=== PATIENT | female | born 1945 | race Caucasian/White ===

== ENCOUNTER 2016-11-25 12:30 | Emergency (ER) | payer MEDICARE ==
[~2016-11-25] VITALS: Ht 162.6 cm; Wt 77.3 kg
[2016-11-25 12:40] VITALS: BP 149/89; PULSE 85; RESP 10; O2SAT 99
== END 2016-11-25 13:19 | disposition left against medical advice (07) ==
LOC: SED 12:30
DX: Z53.20 Procedure and treatment not carried out because of patient's decision for unspecified reasons (principal)

== ENCOUNTER 2016-12-21 04:43 | Emergency (ER) | payer MEDICARE ==
[~2016-12-21] VITALS: Ht 165.1 cm; Wt 78.2 kg
[2016-12-21 04:52] VITALS: BP 161/107; PULSE 84; RESP 16; O2SAT 98
--- NOTE | 2016-12-21 06:01 | ED.REPORT ---
HPI-Headache Date of Service Dec 21, 2016 ED Provider: Houston Conley DO A 71 year old female with a history of cluster headaches, HTN and hypercholesterolemia presents to the ED complaining of severe, sharp feeling headache rated 10/10. Condition has improved with O2 given for a half hour, she wants to be released. She reports that O2 relieves feeling of sharpness. Baseline headaches can last for 2 weeks, and she can have intervals of relief lasting 35 days, with baseline pain described as "ice pick picking at her left eye." . She has been put on endomycin to treat headaches in the past but wants to try O2 treatment because she is afraid liver damage from the drug. She currently takes medication for HTN and hypercholesterolemia. She reports a history of cholecystectomy. She drinks wine on occasion but does not smoke. Nursing Notes Stated Complaint: HEADACHE Chief Complaint: Headache Nursing Notes Reviewed: Yes Allergies: Coded Allergies: lisinopril (Verified Allergy, Unknown, cough, 11/25/16) promethazine (Verified Allergy, Unknown, anaphylaxis, 11/25/16) Uncoded Allergies: EMITREX INJECTABLE (Allergy, Unknown, 12/21/16) General Time Seen by MD: 06:01 Chief Complaint Headache Hx Obtained From: Patient Arrived By: Walk-in Sudden in Onset?: Yes Onset Occurred: 1 - 4 hours ago Symptom Duration: Since onset Recent Healthcare: Recent doctor visit (ED visit on Nov 25, 2016) Similar Sx Previous: Yes Past Medical History Past Medical History cluster headasches hypercholesterolemia Reports: Hypertension Past Surgical History Reports: Cholecystectomy Smoking History Never Smoker Social History Alcohol Use: "Social" Ambulatory Status Independent Review of Systems Constitutional: Denies: Fever Skin: Denies Bruising Neurologic: Reports: Headache Complete sys rev & neg: except as marked. Physical Exam Physical Exam Notes: Normal evaluation without stethoscope. Initial Vital Signs Vital Signs (First) Date Time Temp Pulse Resp B/P Pulse Ox O2 Delivery O2 Flow Rate FiO2 12/21/16 04:52 36.3 84 16 161/107 98 Room Air Initial VS: Reviewed General/Constitutional: Awake, Alert Pleasant, not appearing to be in distress. Head / Eyes: Atraumatic, Normocephalic, PERRL, EOMI Neck: Atraumatic, Full range of motion Neurologic: Oriented X3, Speech NL, No motor deficits, No sensory deficits, CN II - XII intact Respiratory / Chest: Atraumatic, No respiratory distress Abdomen: Atraumatic, No guarding, No rebound Skin: Warm, Dry Back: Atraumatic, Full range of motion Upper Extremity / MS: Atraumatic, Full range of motion Wrist / Hand: Atraumatic, Full range of motion Lower Extremity / Pelvis / MS: Atraumatic, Full range of motion Re-Eval/Medical Decision Med Decision/Clinical Course History of cluster headaches, simply requesting oxygen therapy, she received oxygen for approximately 30 minutes without complete relief of her headache but with some improvement. She declines any other intervention or medication. Return and follow-up precautions given. Source of Hx: Old records Re-Evaluation/Progress : Time of Eval: 06:01 Re-Evaluation/Progress Note: Rechecked patient, explained test results, diagnosis, and plan for discharge. Patient understands and agrees weith the plan. All questions addressed. Counseled Regarding: Diagnosis, Need for follow-up, When/why to return to ED Discharge & Departure Impression: Primary Impression: Cluster headache Disposition: Home Discharge Condition All VS Reviewed: Yes Condition: Improved Additional Instructions: Today you were seen in the ER and received high flow oxygen via a non- rebreather at greater than 15 L/m. Your blood pressure was mildly elevated at 161/107. Follow-up with your primary care doctor as needed for worsening symptoms or return to the ER. Referrals: Cristian Lin MD (PCP) Scribe Attestation Portions of this note were transcribed by Kendall Hoyos. I, Dr. Conley personally performed the history, physical exam and medical decision-making; I reviewed and confirmed the accuracy of the information in the transcribed note. Signed by: Geovanny Hough, 12/21/2016 0639. copies to: Cristian Lin MD, Timothy Caroline VEGA Dec 21, 2016 06:01 Kendall Hoyos Dec 21, 2016 06:23
[2016-12-21 06:33] VITALS: BP 172/103
== END 2016-12-21 06:34 | disposition home or self-care (01) ==
LOC: SED 04:43
DX: G44.009 Cluster headache syndrome, unspecified, not intractable (principal); I10 Essential (primary) hypertension